=== PATIENT | female | born 1985 | race Caucasian/White ===

== ENCOUNTER 2025-03-20 21:21 | Emergency (ER) | payer OTHER ==
[~2025-03-20] VITALS: Ht 165.1 cm; Wt 70.5 kg
[2025-03-20 22:09] LABS: PLATELET COUNT (AUTO) 204 K/uL (150-450); RED BLOOD CELL COUNT(AUTO) 4.28 MIL/uL (4.00-5.20); RED CELL DISTRIBUTION WIDTH 12.3 % (11.5-14.5); WHITE BLOOD COUNT (AUTO) 9.9 K/uL (4.5-11.0)
[2025-03-20 22:17] LABS: CALCIUM, TOTAL 8.7 mg/dL (8.8-10.5); CREATININE 0.86 mg/dL (0.60-1.30); GLOMERULAR FILTR. RATE CALC > 60 mL/min (>60); GLUCOSE,RANDOM 91 mg/dL (70-110); SODIUM SERUM 142 mmol/L (136-145); UREA NITROGEN, BLOOD 9 mg/dL (7-18)
[2025-03-20 22:24] LABS: COVID AG,FIA SOURCE NASAL SWAB
[2025-03-20 22:42] LABS: SARS-COV2 (COVID) ANTIGEN,FIA Negative (Negative)
[2025-03-20] MEDS ORDERED: GuaiFENesin/D-METHORPHAN [SUGAR-FREE] 200-20MG/10 ML SYRUP UDCUP PO PRN (23:45)
[2025-03-20] MEDS ORDERED: PROMETHAZINE HCL 25 MG TABLET PO PRN (23:45)
[2025-03-20] MEDS ORDERED: MAG HYDROX/ALUMINUM HYD/SIMETH ES 30 ML SUSPENSION UDCUP PO PRN (23:45)
[2025-03-20] MEDS ORDERED: ACETAMINOPHEN 325 MG TABLET PO PRN (23:45)
[2025-03-20] MEDS ORDERED: MAGNESIUM HYDROXIDE SUSPENSION 30 ML UDCUP PO PRN (23:45)
[2025-03-20] MEDS ORDERED: LOPERAMIDE HCL 2 MG CAPSULE PO PRN (23:45)
[2025-03-20] MEDS ORDERED: ZOLPIDEM TARTRATE 10 MG TABLET PO PRN (23:45)
[2025-03-20] MEDS ORDERED: TUBERCULIN, PURIFIED PROTEIN DERIVATIVE 5 TU/0.1 ML SYRINGE ID ONE (23:45)
[2025-03-21 00:41] VITALS: BP 118/72; PULSE 85; RESP 16; TEMP 98.2; O2SAT 97
[2025-03-21] MEDS ORDERED: THIAMINE 100 MG TABLET PO SCH (09:00)
[2025-03-21] MEDS ORDERED: NALTREXONE HCL 50 MG TABLET PO SCH (09:00)
[2025-03-21] MEDS ORDERED: FOLIC ACID 1 MG TABLET PO SCH (09:00)
[2025-03-21] MEDS ORDERED: MULTIVITAMINS WITH MINERALS, THERAPEUTIC TABLET PO SCH (09:00)
[2025-03-21] MEDS ORDERED: MELATONIN 5 MG TABLET PO SCH (21:00)
== END 2025-03-21 01:08 | disposition admitted as inpatient to this hospital (09) ==
LOC: EMS 21:21
DX: F32.9 Major depressive disorder, single episode, unspecified (principal); R45.851 Suicidal ideations; F32.A Depression, unspecified; Z20.822 Contact with and (suspected) exposure to COVID-19
CPT/HCPCS: 99285; 87426; 80048; 84703; 85025; 36415; G0480